=== PATIENT | male | born 1935 | race Caucasian/White ===

== ENCOUNTER 2020-06-13 06:32 | Day surgery (SDC) | payer MEDICARE ==
[~2020-06-13 06:32] MED LIST: ALPRAZolam 0.25 MG TAB PO PRN; ALPRAZolam 0.5 MG TAB PO PRN; ASPIRIN 325 MG TAB PO STA; ATORVASTATIN 80 MG TAB PO STA; NITROGLYCERIN SL TABS 0.4 MG TAB SUBLINGUAL PRN; SODIUM CHLORIDE 0.9% 1,000 ML in EMPTY BAG 1 BAG IV ONE
[2020-06-13] MEDS ORDERED: HEPARIN SODIUM,PORCINE 10,000 UNIT in SODIUM CHLORIDE 0.9% 1,000 ML IRRIGATION PRN (07:00)
[2020-06-13] MEDS ORDERED: HEPARIN SODIUM,PORCINE 2,500 UNIT in SODIUM CHLORIDE 0.9% 250 ML IRRIGATION PRN (07:00)
[2020-06-13] MEDS ORDERED: VERAPAMIL 2.5 MG/ML 2 ML AMP ONE (07:11)
[2020-06-13] MEDS ORDERED: LIDOCAINE 1% INJ 10MG/ML (20 ML MDV) ONE (07:11)
[2020-06-13 07:13] LABS: Basophils # (A) 0.1 k/uL (0-0.2); Basophils % (A) 1 %; Eosinophils # (A) 0.3 k/uL (0-0.7); Eosinophils % (A) 5 %; HCT 46.4 % (39.0-53.0); HGB 15.8 gm/dL (13.0-17.5); Lymphocytes # (A) 1.5 k/uL (1.0-4.8); Lymphocytes % (A) 25 %; MCH 31.9 pg (25.0-35.0); MCHC 34.1 g/dL (31.0-37.0); MCV 93.5 fL (80.0-100.0); Mean Platelet Volume 7.9; Monocytes # (A) 0.4 k/uL (0-1.0); Monocytes % (A) 7 %; Neutrophils # (A) 3.6 k/uL (1.3-7.7); Neutrophils % (A) 59 %; Platelet Count 166 k/uL (150-450); RBC 4.96 m/uL (4.30-5.90); RDW 13.3 % (11.5-15.5); WBC 6.1 k/uL (3.8-10.6)
[2020-06-13 07:25] LABS: Calcium 9.3 mg/dL (8.4-10.2); Potassium 4.1 mmol/L (3.5-5.1)
[2020-06-13] MEDS ORDERED: fentaNYL (PF) 50 MCG/ML 2 ML AMP ONE (07:28)
[2020-06-13] MEDS ORDERED: fentaNYL (PF) 50 MCG/ML 2 ML AMP IVP ONE (07:29)
[2020-06-13] MEDS ORDERED: LIDOCAINE 1% INJ 10MG/ML (20 ML MDV) SQ ONE ×2 (07:29→07:51)
[2020-06-13] MEDS ORDERED: MIDAZOLAM 2 MG/2 ML VIAL IVP ONE (07:29)
[2020-06-13] MEDS: NITROGLYCERIN 1000MCG/10ML SYRINGE INTRAARTER ONE ×2 (07:46→08:42)
[2020-06-13] MEDS ORDERED: HEPARIN SODIUM 1,000 UN/ML (10ML VL) ONE (08:09)
[2020-06-13] MEDS ORDERED: CLOPIDOGREL 75 MG TAB ONE (08:09)
[2020-06-13] MEDS: HEPARIN SODIUM 1,000 UN/ML (10ML VL) IV ONE ×2 (08:11→08:31)
[2020-06-13] MEDS ORDERED: CLOPIDOGREL 75 MG TAB PO ONE (08:15)
[2020-06-13] MEDS ORDERED: IOPAMIDOL-370 125ML BTL INJ ONE ×2 (08:27)
[2020-06-13] MEDS ORDERED: SODIUM CHLORIDE 0.9% 1,000 ML IV ONE (08:41)
[2020-06-13] MEDS ORDERED: IOPAMIDOL-370 100ML BTL INJ ONE (08:43)
[2020-06-13] MEDS ORDERED: RX INFO: IV CONTRAST WAS GIVEN 1 EACH MISC MISCELLANE PRN (09:11)
[2020-06-13] MEDS ORDERED: MAG HYDROX/AL HYDROX/SIMETH 30 ML CUP PO PRN (09:11)
[2020-06-13] MEDS ORDERED: ZOLPIDEM 5 MG TAB PO PRN (09:11)
[2020-06-13] MEDS ORDERED: ATROPINE SULFATE 0.1 MG/ML 10ML SYRINGE IV PRN (09:11)
[2020-06-13] MEDS ORDERED: NITROGLYCERIN SL TABS 0.4 MG TAB SUBLINGUAL PRN (09:11)
[2020-06-13] MEDS ORDERED: SODIUM CHLORIDE 0.9% 1,000 ML IV SCH (09:15)
--- NOTE | 2020-06-13 09:28 | P.PRCINT ---
Percutaneous Coronary Int. - Percutaneous Coronary Intervention Percutaneous Coronary Intervention: PROCEDURES PERFORMED: Left heart catheterization, bilateral coronary angiography, PCI of proximal LAD with a 3.5 x 15 mm Xience BOO, PCI of proximal OM1 with a 3.5 x 33 mm Xience BOO INDICATION: Abnormal stress test, angina class III HISTORY: Patient is a pleasant 85-year-old male with history of hypertension, hyperlipidemia and otherwise in fairly good health who presented to the office with increasing shortness breath over the prior year. Patient has been fairly active walking and this has been affecting his quality of life. We did perform a nuclear stress test which showed some diaphragmatic attenuation artifact however also reversible portion of the apical inferior wall. He was tried on metoprolol without any change and therefore was agreeable to heart catheterization with possible PCI. CONSENT:I have discussed the risks, benefits and alternative therapies for the above-mentioned procedure and for both sedation/analgesia as well as necessary blood product administration, if indicated, as they pertain to this patient. The patient has indicated understanding and acceptance of the risks and procedures discussed. PROCEDURE: After the risks, benefits and alternatives of the above mentioned pro cedure explained in detail with the patient, informed consent was obtained. Patient was taken to the catheterization lab and prepped and draped in usual fashion. 1% lidocaine was used to anesthetize the right radial artery. Right radial access was attempted with ultrasound however wire would not easily pass and appeared that the more proximal radial artery had a dip on ultrasound and therefore radial access was aborted. 1% lidocaine was used to anesthetize the right femoral area. Using ultrasound guidance and micro-needle, a 6-Malagasy sheath was placed in the right femoral artery using modified Seldinger technique. Left coronary angiography was performed with a 6-Malagasy JL 4.0 catheter and right coronary angiography was performed with a 6-Malagasy JR4 catheter in various views. The 6-Malagasy JR4 catheter was inserted into the left ventricle and pressure measurements were obtained. A decision was made to intervene on the proximal LAD and OM1. A 6-Malagasy CLS 3.5 guide disease to engage the left main. A 0.014 BMW wire was advanced into the distal LAD. The proximal LAD was predilated with a 2.75 x 12 mm balloon. A 3.5 x 15 mm Xience BOO stent was placed in the ostial LAD. There was more distal diffuse mid LAD disease however this appeared 50% and felt best treated medically. Pre intervention on the LAD there was 85% proximal LAD stenosis with IGOR 2 flow and postintervention there is 0% stenosis with IGOR 3 flow and no dissection. Next a second 0.014 BMW wire was advanced into the OM1. Both lesions were predilated with a 2.75 x 12 mm balloon. Next a 3.5 x 33 mm Xience BOO was placed. The wire was pulled and final angiograms were taken. Preintervention there was a proximal 90% OM1 and a mid OM1 80% stenosis with IGOR 3 flow area postintervention there was 0% stenosis with IGOR 3 flow and no dissection. A right femoral angiogram was performed which showed adequate anatomy for closure. A 6-Malagasy Angio-Seal was placed with hemostasis achieved. The patient tolerated the procedure well. Patient was transported back to the post catheterization holding area in stable condition. Conscious Sedation: Patient was monitored under the direct supervision of vision of myself for conscious sedation using Versed and fentanyl for a total duration of 78 minutes HEMODYNAMICS: Aortic: 94/52 LV: 98/2, LVEDP 11 SELECTIVE CORONARY ARTERIOGRAPHY: LEFT MAIN: The left main is a large caliber vessel which bifurcates into the LAD and circumflex. There is no significant stenosis. LEFT ANTERIOR DESCENDING CORONARY ARTERY: LAD is a large caliber vessel which wr aps around to the apex. There is a proximal 85% LAD stenosis. There is a more distal at LAD 40-50% stenosis and a mid 30% stenosis. There is IGOR 2 flow. LEFT CIRCUMFLEX CORONARY ARTERY: Left circumflex is a moderate to large caliber vessel. The circumflex gives off a moderate to large caliber OM1 vessel which has a proximal OM1 90% stenosis followed by a mid OM1 80% stenosis. There is IGOR 3 flow. The circumflex then continues as a small to moderate caliber vessel and gives off a small caliber OM 2 and OM3 with mild luminal irregularities. RIGHT CORONARY ARTERY: The right coronary artery is a large caliber vessel which gives off a PDA and PLV branch and is the dominant vessel. There is a proximal 50-60% RCA stenosis, a mid RCA 30% stenosis and a mid to distal 40-50% stenosis. Otherwise there are only mild luminal irregularities. FINAL IMPRESSION: 1. Coronary artery disease as described above with 85% proximal LAD, tandem 90% and 80% OM1 stenoses s/p PCI of proximal LAD with a 3.5 x 15 mm Xience BOO, PCI of proximal OM1 with a 3.5 x 33 mm Xience BOO 2. Moderate disease of the RCA with 50-60% proximal RCA stenosis 3. Normal left-sided filling pressures PLAN: 1. Aggressive risk factor modification per most recent ACC/AHA guidelines. 2. Continue to antiplatelets for 12 months. 3. Would continue to treat RCA and mid LAD medically.
[2020-06-13] MEDS: METOPROLOL SUCCINATE (ER) 25 MG TAB.ER.24H PO SCH (11:25)
[2020-06-13 15:13] VITALS: BMI 29.6
[2020-06-13] MEDS ORDERED: ATORVASTATIN 40 MG TAB PO SCH (21:00)
--- NOTE | 2020-06-14 07:38 | P.DS ---
Providers Attending physician: Paul Martin DO Consults: 06/13/20 09:11 Consult Physician Routine Consulting Provider: [facility] Consult Reason/Comments: Post Interventional patient Do you want consulting provider notified?: Already Contacted Primary care physician: [facility] Course: Patient is a pleasant 85-year-old male with history of hypertension, hyperlipidemia and otherwise in fairly good health who presented to the office with increasing shortness breath over the prior year. Patient has been fairly active walking and this has been affecting his quality of life. We did perform a nuclear stress test which showed some diaphragmatic attenuation artifact however also reversible portion of the apical inferior wall. Patient had LHC with PCI of proximal LAD and OM1 through a femoral approach on 06/13. On 06/14 he denies any chest pain or pressure, SOB and no bleeding issues from the femoral site. Heart RRR, no murmur, lungs CTAB. Patient appears stable for DC home on 06/14. Plan - Discharge Summary Discharge Rx Participant: Yes New Discharge Prescriptions: New Clopidogrel Bisulfate [Plavix] 75 mg PO DAILY #90 tab Atorvastatin Calcium [Lipitor] 40 mg PO DAILY #90 tablet Metoprolol Succinate [Toprol XL] 25 mg PO DAILY #90 tab Clopidogrel [Plavix] 75 mg PO DAILY #90 tab Continue Lisinopril [Zestril] 10 mg PO DAILY Furosemide [Lasix] 40 mg PO DAILY Tamsulosin HCl [Flomax] 0.4 mg PO DAILY Potassium Chloride [Klor-Con 10] 10 meq PO DAILY Aspirin [Adult Low Dose Aspirin EC] 81 mg PO DAILY Discontinued Simvastatin [Zocor] 20 mg PO DAILY Discharge Medication List Aspirin [Adult Low Dose Aspirin EC] 81 mg PO DAILY 06/12/20 [History] Furosemide [Lasix] 40 mg PO DAILY 06/12/20 [History] Lisinopril [Zestril] 10 mg PO DAILY 06/12/20 [History] Potassium Chloride [Klor-Con 10] 10 meq PO DAILY 06/12/20 [History] Tamsulosin HCl [Flomax] 0.4 mg PO DAILY 06/12/20 [History] Atorvastatin Calcium [Lipitor] 40 mg PO DAILY #90 tablet 06/14/20 [Rx] Clopidogrel Bisulfate [Plavix] 75 mg PO DAILY #90 tab 06/14/20 [Rx] Clopidogrel [Plavix] 75 mg PO DAILY #90 tab 06/14/20 [Rx] Metoprolol Succinate [Toprol XL] 25 mg PO DAILY #90 tab 06/14/20 [Rx] Follow up Appointment(s)/Referral(s): Paul Martin DO [STAFF PHYSICIAN] - 06/24/20 10:45 am Patient Instructions/Handouts: *[facility] - After Heart Catheterization - Repatcher Instructions, Left Heart Catheterization (DC), Procedural Sedation (ED), Angio-Seal (DC)
[2020-06-14] MEDS ORDERED: ASPIRIN 81 MG PO SCH (09:00)
[2020-06-14] MEDS ORDERED: TAMSULOSIN 0.4 MG CAP.ER.24H PO SCH (09:00)
[2020-06-14] MEDS ORDERED: CLOPIDOGREL 75 MG TAB PO SCH (09:00)
[2020-06-14] MEDS ORDERED: lisinopriL 10 MG TAB PO SCH (09:00)
[2020-06-14] MEDS: METOPROLOL SUCCINATE (ER) 25 MG TAB.ER.24H PO SCH (09:18)
[2020-06-14 09:31] VITALS: BP 118/72; PULSE 84; RESP 16; TEMP 98.8
== END 2020-06-14 10:42 | disposition home or self-care (01) ==
LOC: EDSEX 06:32 → CATHCVL 06:32 → 6NMEDSUR 08:46 → 3SCARD 09:10 → CATHCVL 06-14 10:42
PROVIDERS: ATTEND Internal Medicine
DX: I25.10 Atherosclerotic heart disease of native coronary artery without angina pectoris (principal); I10 Essential (primary) hypertension; R94.39 Abnormal result of other cardiovascular function study; R94.31 Abnormal electrocardiogram [ECG] [EKG]; Z72.0 Tobacco use; E78.5 Hyperlipidemia, unspecified; N40.0 Benign prostatic hyperplasia without lower urinary tract symptoms; N52.9 Male erectile dysfunction, unspecified; Z79.899 Other long term (current) drug therapy
CPT/HCPCS: 80048; 85025; 85347; 93458